=== PATIENT | female | born 1935 | race Native Hawaiian/Other Pacific Islander ===

== ENCOUNTER 2016-03-30 01:05 | Inpatient (IN) | payer OTHER, MEDICARE ==
[~2016-03-30] VITALS: Ht 162.6 cm; Wt 54.0 kg
[~2016-03-30 01:05] MED LIST: ALLEGRA ALRG180 M1 PO; BENICAR HCT1 TA1 PO; BENZONATATE200 MG PO; CARI350T15 PO; CEFTIN250 MG OR; CIPRO500 MG PO; CORICIDN HBP OR; DELSYM30 MG/5 ML OR; DIAZ5TAB20 PO; FLONASE0.05 %; FLUTICASONE50 MCG; LEVO0.0218 PO; ONDA4TAB3 PO; OXYC5TAB53 PO; SINGULAIR10 MG; TRIM800T12 PO; ZOFRAN8 MG PO
[2016-03-30 01:33] VITALS: BP 132/62; TEMP 97.7
[2016-03-30 02:41] LABS: PLATELET COUNT 223 K/uL (152-353)
[2016-03-30 02:46] LABS: POTASSIUM 4.2 mmol/L (3.6-5.2)
[2016-03-30] MEDS ORDERED: PREG50CA PO (04:48)
[2016-03-30 06:20] VITALS: BP 144/91; TEMP 98; Ht 162.6 cm; Wt 54.0 kg
[2016-03-30 08:18] VITALS: BP 116/61; TEMP 97.8
[2016-03-30] MEDS ORDERED: BENICAR HCT1 TA1 PO (09:39)
[2016-03-30 12:00] VITALS: BP 108/52; BP 96/42; TEMP 98.7
[2016-03-30 16:00] VITALS: BP 113/43; TEMP 98.7
[2016-03-30 21:22] VITALS: BP 101/41; TEMP 99.6
[2016-03-31 00:09] VITALS: BP 89/40; TEMP 98.2
[2016-03-31 04:00] VITALS: BP 97/41; TEMP 98
[2016-03-31 05:19] LABS: PLATELET COUNT 174 K/uL (152-353)
[2016-03-31 05:49] LABS: POTASSIUM 2.9 mmol/L (3.6-5.2); SODIUM 133 mmol/L (136-145)
[2016-03-31 08:06] VITALS: BP 132/52; TEMP 97.7
[2016-03-31 12:01] VITALS: BP 117/49; TEMP 97.7
[2016-03-31 16:00] VITALS: BP 130/53; TEMP 97.9
[2016-03-31 20:22] VITALS: BP 134/80; TEMP 98
[2016-04-01 00:06] VITALS: BP 113/46; TEMP 97.9
[2016-04-01 05:09] LABS: PLATELET COUNT 155 K/uL (152-353)
[2016-04-01 05:23] VITALS: BP 130/51; TEMP 98.1
[2016-04-01 05:38] LABS: POTASSIUM 3.8 mmol/L (3.6-5.2); SODIUM 135 mmol/L (136-145)
[2016-04-01 08:00] VITALS: BP 157/54; TEMP 97.9
[2016-04-01 12:00] VITALS: BP 115/55; TEMP 97.9
== END 2016-04-01 13:50 | disposition home or self-care (01) | DRG 392 ==
LOC: ED 01:05 → MED/SURG 04:41 → ED 04:50 → MED/SURG 04:50
PROVIDERS: Internal Medicine; ADMIT Specialist
DX: K52.89 Other specified noninfective gastroenteritis and colitis (principal); N39.0 Urinary tract infection, site not specified; D72.828 Other elevated white blood cell count; B96.1 Klebsiella pneumoniae [K. pneumoniae] as the cause of diseases classified elsewhere; I10 Essential (primary) hypertension; E86.9 Volume depletion, unspecified; E87.6 Hypokalemia; M15.8 Other polyosteoarthritis
CPT/HCPCS: 36415; 80053; 81000; 83036; 83735; 84100; 85027; 87015; 87045; 87077; 87086; 87088; 87186; 87205; 87328; 87329; 87493; 87804; 87899; 96360; 96361; 96367; 96374; 96375; 96376; 99284; J0690; J0744; J2405; J3490

== ENCOUNTER 2016-06-29 07:32 | Outpatient (CLI) | payer OTHER, MEDICARE ==
[~2016-06-29 07:32] MED LIST changes: +PREG50CA PO
[2016-06-29 08:31] LABS: PLATELET COUNT 178 K/uL (152-353)
== END 2016-06-29 08:32 | disposition home or self-care (01) ==
LOC: LABW 07:32
PROVIDERS: Internal Medicine
DX: I10 Essential (primary) hypertension (principal); E03.8 Other specified hypothyroidism; R82.99 Other abnormal findings in urine
CPT/HCPCS: 36415; 80053; 80061; 81000; 84439; 84443; 85027; 87077; 87086; 87088; 87186

== ENCOUNTER 2017-01-17 14:34 | Outpatient (CLI) | payer OTHER, MEDICARE | END 2017-01-17 19:07 | disposition home or self-care (01) | LOC: LAB 14:34 | DX: N39.0 Urinary tract infection, site not specified (principal) | CPT/HCPCS: 87077; 87086; 87088; 87186 ==

== ENCOUNTER 2017-01-31 08:33 | Outpatient (CLI) | payer OTHER, MEDICARE | END 2017-01-31 10:00 | disposition home or self-care (01) | LOC: US 08:33 | DX: R10.84 Generalized abdominal pain (principal) ==

== ENCOUNTER 2017-08-31 17:11 | Outpatient (CLI) | payer OTHER, MEDICARE | END 2017-08-31 20:34 | disposition home or self-care (01) | LOC: LAB 17:11 | DX: N39.0 Urinary tract infection, site not specified (principal) | CPT/HCPCS: 87077; 87086; 87088; 87186 ==

== ENCOUNTER 2017-10-09 13:09 | Outpatient (CLI) | payer OTHER, MEDICARE | END 2017-10-09 23:06 | disposition home or self-care (01) | LOC: RAD 13:09 | DX: M79.641 Pain in right hand (principal) ==

== ENCOUNTER 2017-11-29 10:20 | Outpatient (CLI) | payer OTHER, MEDICARE ==
[2017-11-29 15:30] LABS: PLATELET COUNT 230 K/uL (152-353)
== END 2017-11-29 19:32 | disposition home or self-care (01) ==
LOC: LABW 10:20 → RAD 10:20 → LABW 19:32
PROVIDERS: Internal Medicine
DX: R05 Cough (principal)
CPT/HCPCS: 36415; 85027; 86615

== ENCOUNTER 2018-01-01 10:01 | Outpatient (CLI) | payer OTHER, MEDICARE | END 2018-01-01 19:55 | disposition home or self-care (01) | LOC: RAD 10:01 | DX: R05 Cough (principal) ==

== ENCOUNTER 2018-01-16 11:56 | Outpatient (CLI) | payer OTHER, MEDICARE | END 2018-01-16 21:24 | disposition home or self-care (01) | LOC: CT 11:56 | DX: R05 Cough (principal); N39.0 Urinary tract infection, site not specified | CPT/HCPCS: 36415; 82565; 84520; 87077; 87086; 87088; 87186; Q9963 ==

== ENCOUNTER 2018-02-07 08:39 | Outpatient (CLI) | payer OTHER, MEDICARE | END 2018-02-07 19:54 | disposition home or self-care (01) | LOC: MAMMO 08:39 | DX: Z12.31 Encounter for screening mammogram for malignant neoplasm of breast (principal) ==

== ENCOUNTER 2018-06-27 12:04 | Outpatient (CLI) | payer OTHER, MEDICARE | END 2018-06-27 20:06 | disposition home or self-care (01) | LOC: LAB 12:04 | DX: N39.0 Urinary tract infection, site not specified (principal) | CPT/HCPCS: 87077; 87086; 87088; 87186 ==

== ENCOUNTER 2018-10-22 13:44 | Outpatient (CLI) | payer OTHER, MEDICARE | END 2018-10-23 05:54 | disposition home or self-care (01) | LOC: RAD 13:44 | DX: M25.562 Pain in left knee (principal) ==

== ENCOUNTER 2018-12-26 08:50 | Outpatient (CLI) | payer OTHER, MEDICARE | END 2018-12-26 23:49 | disposition home or self-care (01) | LOC: MRI 08:50 | DX: S83.221D Peripheral tear of medial meniscus, current injury, right knee, subsequent encounter (principal) ==

== ENCOUNTER 2018-12-26 11:01 | Emergency (ER) | payer OTHER, MEDICARE ==
[~2018-12-26] VITALS: Ht 162.6 cm; Wt 54.4 kg
[2018-12-26 13:45] VITALS: BP 161/67; TEMP 97.8
== END 2018-12-26 13:45 | disposition home or self-care (01) ==
LOC: ED 11:01
DX: S41.111A Laceration without foreign body of right upper arm, initial encounter (principal); S51.811A Laceration without foreign body of right forearm, initial encounter; S09.8XXA Other specified injuries of head, initial encounter; S63.591A Other specified sprain of right wrist, initial encounter; W18.39XA Other fall on same level, initial encounter; Y92.89 Other specified places as the place of occurrence of the external cause; S83.221D Peripheral tear of medial meniscus, current injury, right knee, subsequent encounter
CPT/HCPCS: 99283

== ENCOUNTER 2018-12-28 13:18 | Outpatient (CLI) | payer OTHER, MEDICARE | END 2018-12-28 22:07 | disposition home or self-care (01) | LOC: LAB 13:18 | DX: R30.0 Dysuria (principal) | CPT/HCPCS: 87077; 87086; 87088; 87186 ==

== ENCOUNTER 2019-02-27 09:47 | Outpatient (CLI) | payer OTHER, MEDICARE | END 2019-02-27 20:33 | disposition home or self-care (01) | LOC: RESP 09:47 | DX: R05 Cough (principal) ==

== ENCOUNTER 2019-04-18 09:47 | Outpatient (CLI) | payer OTHER, MEDICARE | END 2019-04-18 23:04 | disposition home or self-care (01) | LOC: LABW 09:47 | DX: Z79.899 Other long term (current) drug therapy (principal); R06.02 Shortness of breath | CPT/HCPCS: 36415; 83880 ==

== ENCOUNTER 2019-04-22 12:49 | Outpatient (CLI) | payer OTHER, MEDICARE | END 2019-04-22 19:35 | disposition home or self-care (01) | LOC: LAB 12:49 | DX: R73.9 Hyperglycemia, unspecified (principal); N39.0 Urinary tract infection, site not specified | CPT/HCPCS: 81002; 87077; 87086; 87088; 87186 ==

== ENCOUNTER 2019-05-01 08:50 | Outpatient (CLI) | payer OTHER, MEDICARE | END 2019-05-01 22:27 | disposition home or self-care (01) | LOC: RESP 08:50 | DX: I10 Essential (primary) hypertension (principal) | CPT/HCPCS: 93306 ==

== ENCOUNTER 2019-05-09 07:06 | Outpatient (CLI) | payer OTHER, MEDICARE ==
[2019-05-09 07:35] LABS: PLATELET COUNT 236 K/uL (152-353)
[2019-05-09 08:02] LABS: POTASSIUM 3.9 mmol/L (3.6-5.2)
== END 2019-05-09 19:42 | disposition home or self-care (01) ==
LOC: LABW 07:06
PROVIDERS: Internal Medicine
DX: Z00.00 Encounter for general adult medical examination without abnormal findings (principal); R82.998 Other abnormal findings in urine; Z79.899 Other long term (current) drug therapy
CPT/HCPCS: 36415; 80053; 80061; 81000; 83036; 84439; 84443; 85027; 87077; 87086; 87088; 87186

== ENCOUNTER 2019-05-15 09:57 | Outpatient (CLI) | payer OTHER, MEDICARE | END 2019-05-15 20:54 | disposition home or self-care (01) | LOC: MAMMO 09:57 | DX: Z12.31 Encounter for screening mammogram for malignant neoplasm of breast (principal); Z13.820 Encounter for screening for osteoporosis; Z78.0 Asymptomatic menopausal state ==

== ENCOUNTER 2019-10-02 14:22 | Outpatient (CLI) | payer OTHER, MEDICARE | END 2019-10-02 21:35 | disposition home or self-care (01) | LOC: RAD 14:22 | DX: J40 Bronchitis, not specified as acute or chronic (principal) ==

== ENCOUNTER 2019-10-30 13:38 | Outpatient (CLI) | payer OTHER, MEDICARE | END 2019-10-30 19:46 | disposition home or self-care (01) | LOC: LAB 13:38 | DX: N39.0 Urinary tract infection, site not specified (principal) | CPT/HCPCS: 87077; 87086; 87088; 87186 ==

== ENCOUNTER 2020-01-01 15:58 | Outpatient (CLI) | payer OTHER, MEDICARE | END 2020-01-01 23:21 | disposition home or self-care (01) | LOC: LAB 15:58 | DX: N39.0 Urinary tract infection, site not specified (principal) | CPT/HCPCS: 87077; 87086; 87088; 87186 ==

== ENCOUNTER 2020-04-06 18:38 | Outpatient (CLI) | payer OTHER, MEDICARE | END 2020-04-06 20:54 | disposition home or self-care (01) | LOC: LAB 18:38 | PROVIDERS: ATTEND Internal Medicine | DX: N39.0 Urinary tract infection, site not specified (principal) | CPT/HCPCS: 87077; 87086; 87088; 87186 ==

== ENCOUNTER 2020-04-07 08:18 | Outpatient (CLI) | payer OTHER, MEDICARE ==
[2020-04-07 09:00] LABS: PLATELET COUNT 268 K/uL (152-353)
[2020-04-07 10:12] LABS: POTASSIUM 3.8 mmol/L (3.6-5.2)
== END 2020-04-07 21:39 | disposition home or self-care (01) ==
LOC: LABW 08:18
PROVIDERS: ATTEND Internal Medicine
DX: N39.0 Urinary tract infection, site not specified (principal); I10 Essential (primary) hypertension; G62.89 Other specified polyneuropathies; G25.81 Restless legs syndrome
CPT/HCPCS: 36415; 80053; 80061; 82607; 82747; 83090; 83540; 83735; 83918; 84439; 84443; 85027

== ENCOUNTER 2020-05-19 09:05 | Outpatient (CLI) | payer OTHER, MEDICARE | END 2020-05-19 19:31 | disposition home or self-care (01) | LOC: LABW 09:05 | PROVIDERS: ATTEND Nurse Practitioner Family | DX: R53.83 Other fatigue (principal); E53.8 Deficiency of other specified B group vitamins | CPT/HCPCS: 36415; 82607; 83918; 84439; 84481 ==

== ENCOUNTER 2020-06-02 10:37 | Outpatient (CLI) | payer OTHER, MEDICARE ==
[2020-06-02 11:10] LABS: PLATELET COUNT 230 K/uL (152-353)
== END 2020-06-02 19:18 | disposition home or self-care (01) ==
LOC: CT 10:37 → LABW 10:37
PROVIDERS: ATTEND Internal Medicine
DX: N18.31 Chronic kidney disease, stage 3a (principal); N39.0 Urinary tract infection, site not specified; R53.83 Other fatigue; R11.2 Nausea with vomiting, unspecified; K76.89 Other specified diseases of liver; N28.1 Cyst of kidney, acquired
CPT/HCPCS: 36415; 80053; 81000; 82043; 82306; 82330; 82533; 82570; 82607; 82728; 82746; 83540; 83550; 83735; 83970; 84100; 84155; 84439; 84443; 85027; 85652; 86038; 87077; 87086; 87088; 87186; Q9963

== ENCOUNTER 2020-07-08 08:46 | Outpatient (CLI) | payer OTHER, MEDICARE | END 2020-07-08 21:30 | disposition home or self-care (01) | LOC: CT 08:46 | PROVIDERS: ATTEND Internal Medicine | DX: N18.31 Chronic kidney disease, stage 3a (principal); K57.90 Diverticulosis of intestine, part unspecified, without perforation or abscess without bleeding | CPT/HCPCS: 36415; 82565; 84520; Q9963 ==

== ENCOUNTER 2020-07-22 11:38 | Outpatient (CLI) | payer OTHER, MEDICARE | END 2020-07-22 21:53 | disposition home or self-care (01) | LOC: LAB 11:38 | PROVIDERS: ATTEND Internal Medicine | DX: N39.0 Urinary tract infection, site not specified (principal) | CPT/HCPCS: 87077; 87086; 87088; 87186 ==

== ENCOUNTER 2020-09-21 11:15 | Outpatient (CLI) | payer OTHER, MEDICARE | END 2020-09-21 23:59 | disposition home or self-care (01) | LOC: RAD 11:15 | PROVIDERS: ATTEND Physician Assistant | DX: M25.511 Pain in right shoulder (principal) ==

== ENCOUNTER 2021-01-12 10:34 | Outpatient (CLI) | payer OTHER, MEDICARE | END 2021-01-12 21:54 | disposition home or self-care (01) | LOC: MRI 10:34 | PROVIDERS: ATTEND Physician Assistant | DX: M75.121 Complete rotator cuff tear or rupture of right shoulder, not specified as traumatic (principal); Z68.20 Body mass index [BMI] 20.0-20.9, adult ==

== ENCOUNTER 2021-01-14 08:40 | Outpatient (CLI) | payer OTHER, MEDICARE ==
[2021-01-14 10:31] LABS: PLATELET COUNT 346 K/uL (152-353)
[2021-01-14 10:40] LABS: POTASSIUM 3.2 mmol/L (3.6-5.2)
== END 2021-01-14 18:52 | disposition home or self-care (01) ==
LOC: RAD 08:40
PROVIDERS: ATTEND Internal Medicine
DX: R13.12 Dysphagia, oropharyngeal phase (principal); R05.3 Chronic cough; Z79.899 Other long term (current) drug therapy; N18.31 Chronic kidney disease, stage 3a; E53.8 Deficiency of other specified B group vitamins
CPT/HCPCS: 80053; 81000; 82043; 82330; 82570; 82607; 82746; 83735; 83880; 83970; 84100; 84155; 85027; 85652; 87077; 87086; 87088; 87186

== ENCOUNTER 2021-01-18 10:36 | Outpatient (CLI) | payer OTHER, MEDICARE | END 2021-01-18 19:05 | disposition home or self-care (01) | LOC: CT 10:36 | PROVIDERS: ATTEND Internal Medicine | DX: R13.19 Other dysphagia (principal) | CPT/HCPCS: Q9963 ==

== ENCOUNTER 2021-01-26 08:43 | Outpatient (CLI) | payer OTHER, MEDICARE | END 2021-01-26 21:18 | disposition home or self-care (01) | LOC: MRI 08:43 | PROVIDERS: ATTEND Internal Medicine | DX: G93.89 Other specified disorders of brain (principal) | CPT/HCPCS: A9576 ==

== ENCOUNTER 2021-02-16 09:14 | Outpatient (CLI) | payer OTHER, MEDICARE | END 2021-02-16 18:56 | disposition home or self-care (01) | LOC: US 09:14 | PROVIDERS: ATTEND Internal Medicine | DX: N28.1 Cyst of kidney, acquired (principal); E07.89 Other specified disorders of thyroid ==

== ENCOUNTER 2021-05-26 10:26 | Outpatient (CLI) | payer OTHER, MEDICARE ==
[2021-05-26 11:15] LABS: PLATELET COUNT 238 K/uL (152-353)
[2021-05-26 11:27] LABS: POTASSIUM 3.9 mmol/L (3.6-5.2)
== END 2021-05-26 19:25 | disposition home or self-care (01) ==
LOC: LABW 10:26
PROVIDERS: ATTEND Internal Medicine
DX: Z00.00 Encounter for general adult medical examination without abnormal findings (principal); N18.31 Chronic kidney disease, stage 3a; E53.8 Deficiency of other specified B group vitamins; E03.8 Other specified hypothyroidism; I12.9 Hypertensive chronic kidney disease with stage 1 through stage 4 chronic kidney disease, or unspecified chronic kidney disease; R82.998 Other abnormal findings in urine
CPT/HCPCS: 36415; 80053; 80061; 81000; 82330; 82570; 82607; 82746; 83735; 83970; 84100; 84155; 84439; 84443; 85027; 87077; 87086; 87088; 87186

== ENCOUNTER 2021-05-27 16:17 | Outpatient (CLI) | payer OTHER, MEDICARE | END 2021-05-27 19:04 | disposition home or self-care (01) | LOC: LAB 16:17 | PROVIDERS: ATTEND Internal Medicine | DX: R19.7 Diarrhea, unspecified (principal) | CPT/HCPCS: 82272; 83630; 87015; 87045; 87206; 87324; 87328; 87329; 87449; 87507; 87899 ==

== ENCOUNTER 2021-06-18 09:13 | Outpatient (CLI) | payer OTHER, MEDICARE | END 2021-06-18 19:51 | disposition home or self-care (01) | LOC: MAMMO 09:13 | PROVIDERS: ATTEND Internal Medicine | DX: Z12.31 Encounter for screening mammogram for malignant neoplasm of breast (principal) ==

== ENCOUNTER 2021-07-06 11:02 | Outpatient (CLI) | payer OTHER, MEDICARE ==
[2021-07-06 11:44] LABS: PLATELET COUNT 308 K/uL (152-353)
[2021-07-06 12:04] LABS: POTASSIUM 4.2 mmol/L (3.6-5.2)
== END 2021-07-06 19:43 | disposition home or self-care (01) ==
LOC: LABW 11:02
PROVIDERS: ATTEND Internal Medicine
DX: N18.31 Chronic kidney disease, stage 3a (principal); E53.8 Deficiency of other specified B group vitamins; Z86.73 Personal history of transient ischemic attack (TIA), and cerebral infarction without residual deficits; R21 Rash and other nonspecific skin eruption; Z79.899 Other long term (current) drug therapy; Z09 Encounter for follow-up examination after completed treatment for conditions other than malignant neoplasm
CPT/HCPCS: 36415; 80053; 81000; 82043; 82330; 82552; 82607; 82746; 83036; 83735; 83970; 84100; 84156; 84439; 84443; 85027; 85652; 86038; 86160; 86235; 87077; 87086; 87088; 87186

== ENCOUNTER 2021-07-23 12:43 | Outpatient (CLI) | payer OTHER, MEDICARE | END 2021-07-23 18:57 | disposition home or self-care (01) | LOC: LABW 12:43 | PROVIDERS: ATTEND Internal Medicine | DX: N18.31 Chronic kidney disease, stage 3a (principal); Z79.899 Other long term (current) drug therapy | CPT/HCPCS: 36415; 84439; 84443 ==

== ENCOUNTER 2021-09-20 09:53 | Emergency (ER) | payer OTHER, MEDICARE ==
[~2021-09-20] VITALS: Ht 162.6 cm; Wt 68.0 kg
[2021-09-20 09:53] VITALS: TEMP 97.8
[2021-09-20 12:11] LABS: POTASSIUM 4.7 mmol/L (3.6-5.2)
[2021-09-20 12:15] LABS: PLATELET COUNT 239 K/uL (152-353)
[2021-09-20 18:57] VITALS: BP 157/63
== END 2021-09-20 18:59 | disposition short-term general hospital (02) ==
LOC: ED 09:53
PROVIDERS: Emergency Medicine Emergency Medical Services
DX: S72.115A Nondisplaced fracture of greater trochanter of left femur, initial encounter for closed fracture (principal); W01.0XXA Fall on same level from slipping, tripping and stumbling without subsequent striking against object, initial encounter; Y92.89 Other specified places as the place of occurrence of the external cause
CPT/HCPCS: 80053; 81002; 83690; 84484; 85007; 85027; 85379; 85610; 93005; 96360; 96361; 96374; 96375; 96376; 99284; J2270; J2405; Q9963

== ENCOUNTER 2021-09-29 10:24 | Outpatient (CLI) | payer OTHER, MEDICARE | END 2021-09-29 19:02 | disposition home or self-care (01) | LOC: LAB 10:24 | PROVIDERS: ATTEND Internal Medicine | DX: I10 Essential (primary) hypertension (principal); Z79.899 Other long term (current) drug therapy | CPT/HCPCS: 84132 ==

== ENCOUNTER 2021-10-19 11:14 | Outpatient (CLI) | payer OTHER, MEDICARE | END 2021-10-19 19:11 | disposition home or self-care (01) | LOC: LAB 11:14 | PROVIDERS: ATTEND Internal Medicine | DX: N39.0 Urinary tract infection, site not specified (principal) | CPT/HCPCS: 81002; 87077; 87086; 87088; 87186 ==

== ENCOUNTER 2021-10-21 11:46 | Emergency (ER) | payer OTHER, MEDICARE ==
[~2021-10-21] VITALS: Ht 162.6 cm; Wt 49.9 kg
[2021-10-21 11:56] VITALS: TEMP 98.2
[2021-10-21 12:28] LABS: PLATELET COUNT 196 K/uL (152-353)
[2021-10-21 12:34] LABS: POTASSIUM 4.2 mmol/L (3.6-5.2)
[2021-10-21 12:47] LABS: PARTIAL THROMBOPLASTIN TIME 26.9 SECONDS (24.5-33.6)
[2021-10-21 15:00] VITALS: BP 128/58
[2021-10-21] MEDS ORDERED: METRONIDAZOL500 MG PO (15:06)
== END 2021-10-21 15:30 | disposition home or self-care (01) ==
LOC: ED 11:46
PROVIDERS: Emergency Medicine
DX: R19.7 Diarrhea, unspecified (principal); R10.84 Generalized abdominal pain
CPT/HCPCS: 36415; 80053; 82272; 83880; 84484; 85027; 85610; 85730; 87324; 87449; 99283; Q9963

== ENCOUNTER → 2022-01-25 | Outpatient (CLI) | payer OTHER, MEDICARE ==
[~2022-01-25] MED LIST changes: +METRONIDAZOL500 MG PO
[2022-01-25 13:12] LABS: PLATELET COUNT 240 K/uL (152-353)
[2022-01-25 13:31] LABS: POTASSIUM 3.8 mmol/L (3.6-5.2)
== END ==
LOC: LAB 12:52
PROVIDERS: ATTEND Internal Medicine
DX: E53.8 Deficiency of other specified B group vitamins (principal); N18.31 Chronic kidney disease, stage 3a; K14.6 Glossodynia; I12.9 Hypertensive chronic kidney disease with stage 1 through stage 4 chronic kidney disease, or unspecified chronic kidney disease; R82.998 Other abnormal findings in urine
CPT/HCPCS: 80053; 81000; 82043; 82330; 82570; 82607; 82746; 83735; 83970; 84100; 84156; 84439; 84443; 84630; 85027; 87077; 87086; 87088; 87186

== ENCOUNTER 2022-03-23 08:16 | Outpatient (CLI) | payer OTHER, MEDICARE | END 2022-03-23 19:00 | disposition home or self-care (01) | LOC: LABW 08:16 | PROVIDERS: ATTEND Internal Medicine Gastroenterology | DX: K59.1 Functional diarrhea (principal) | CPT/HCPCS: 82705; 83630; 87015; 87045; 87324; 87328; 87329; 87449; 87899 ==

== ENCOUNTER 2022-05-02 09:23 | Outpatient (CLI) | payer OTHER, MEDICARE | END 2022-05-02 20:17 | disposition home or self-care (01) | LOC: LABW 09:23 | PROVIDERS: ATTEND Internal Medicine | DX: I10 Essential (primary) hypertension (principal) | CPT/HCPCS: 36415; 84439; 84443 ==

== ENCOUNTER 2022-12-28 08:50 | Outpatient (CLI) | payer OTHER, MEDICARE ==
[2022-12-28 09:09] LABS: PLATELET COUNT 219 K/uL (152-353)
[2022-12-28 09:23] LABS: POTASSIUM 3.8 mmol/L (3.6-5.2)
== END 2022-12-28 19:21 | disposition home or self-care (01) ==
LOC: LABW 08:50 → CT 09:30 → LABW 19:21
PROVIDERS: ATTEND Internal Medicine
DX: R19.7 Diarrhea, unspecified (principal); R10.32 Left lower quadrant pain; D84.89 Other immunodeficiencies
CPT/HCPCS: 36415; 80053; 81002; 82272; 83630; 83735; 85027; 87015; 87045; 87206; 87324; 87328; 87329; 87449; 87507; 87899